=== PATIENT | male | born 1965 | race Caucasian/White ===

== ENCOUNTER 2024-10-22 08:47 | Day surgery (SDC) | payer BC, OTHER ==
[~2024-10-22 08:47] MED LIST: Sodium Chloride 0.9% 10 ML Syringe FLUSH PRN
[2024-10-22] MEDS: Lactated Ringers 1,000 ML IV SCH (08:54)
[2024-10-22] MEDS ORDERED: Midazolam 1 MG/ML 2 ML SDV ONE (10:14)
[2024-10-22] MEDS ORDERED: Propofol 200 MG/20 ML SDV ONE (10:14)
== END 2024-10-22 12:09 | disposition home or self-care (01) ==
LOC: KA.SDS 08:47 → MERGE 08:47 → KA.SDS 12:09
PROVIDERS: ATTEND Family Medicine
DX: Z12.11 Encounter for screening for malignant neoplasm of colon (principal); D12.6 Benign neoplasm of colon, unspecified; K62.1 Rectal polyp; K57.30 Diverticulosis of large intestine without perforation or abscess without bleeding; K64.8 Other hemorrhoids; I10 Essential (primary) hypertension; K21.9 Gastro-esophageal reflux disease without esophagitis; Z86.0100 Personal history of colon polyps, unspecified; Z85.038 Personal history of other malignant neoplasm of large intestine; Z79.899 Other long term (current) drug therapy
CPT/HCPCS: 00811; J2250; J2704; J7120